=== PATIENT | male | born 1980 | race Hispanic/Latino ===

== ENCOUNTER 2017-05-17 18:57 | Inpatient (IN) | payer SELFPAY ==
[~2017-05-17] VITALS: Ht 167.6 cm; Wt 109.5 kg
[2017-05-17 19:29] LABS: BASOPHILS % (AUTO) 0.7 % (0.0-5.0); EOSINOPHILS % (AUTO) 0.3 % (0.0-8.0); HEMATOCRIT 43.4 % (42-54); LYMPHOCYTES % (AUTO) 15.5 % (21.0-51.0); MEAN CORPUSCULAR HEMOGLOBIN 28.5 pg (27.0-33.0); MEAN CORPUSCULAR HGB CONC 33.9 g/dL (32.0-36.0); MEAN CORPUSCULAR VOLUME 84.2 fL (79-99); MONOCYTES % (AUTO) 5.5 % (3.0-13.0); NUCLEATED RED BLOOD CELLS 0.1 % (0.0-0.19); PLATELET COUNT (AUTO) 284 K/uL (130-400); RED BLOOD CELL COUNT(AUTO) 5.16 MIL/uL (4.50-6.20); RED CELL DISTRIBUTION WIDTH 13.4 % (11.0-15.5); WHITE BLOOD COUNT (AUTO) 19.1 K/uL (4.8-10.8)
[2017-05-17 19:38] LABS: CREATININE 1.1 mg/dL (0.5-1.5); POTASSIUM 3.6 mmol/L (3.5-5.1)
[2017-05-17 19:44] LABS: ALBUMIN 3.5 g/dL (3.5-5.0); BILIRUBIN,TOTAL 1.6 mg/dL (0.2-1.0); TOTAL PROTEIN, SERUM 8.5 g/dL (6.0-8.3)
[2017-05-17] MEDS ORDERED: SODIUM CHLORIDE 0.9% 1000ML 1,000 ML IV ONE ×2 (19:45→21:39)
[2017-05-17] MEDS ORDERED: KETOROLAC TROMETHAMINE 30MG/ML ONE (19:45)
[2017-05-17] MEDS ORDERED: ONDANSETRON HCL MDV 20ML 2 MG/ML VIAL ONE (19:45)
[2017-05-17 20:00] LABS: APPEARANCE,URINE Clear (CLEAR); BILIRUBIN,URINE Negative (NEGATIVE); COLOR,URINE Yellow (YELLOW); GLUCOSE, URINE (UA) Negative (NEGATIVE); KETONES,URINE 15 mg/dL (NEGATIVE); LEUKOCYTE ESTERASE ,URINE Negative (NEGATIVE); NITRATE,URINE Negative (NEGATIVE); OCCULT BLOOD,URINE Trace (NEGATIVE); PH,URINE 6.5 (5.0-8.0); PROTEIN,URINE Negative (NEGATIVE)
[2017-05-17 20:08] LABS: RBC,URINE 0-1 /HPF (0-1)
[2017-05-17 20:09] LABS: BACTERIA,URINE Rare /HPF (None Seen); SQUAMOUS EPITHELIAL CELL,UR 0-2 /HPF (0-2); WBC,URINE 0-1 /HPF (0-1)
[2017-05-17] MEDS ORDERED: IOPAMIDOL-370 75 ML VIAL IV ONE (20:10)
[2017-05-17] MEDS ORDERED: MORPHINE SULFATE 4 MG/1ML SYG ONE (20:48)
[2017-05-17] MEDS ORDERED: MEROPENEM 1 GM VIAL ONE (20:48)
[2017-05-18] VITALS (7 sets, daily range): BP systolic 123–135; BP diastolic 75–78
[2017-05-18] MEDS ORDERED: ACETAMINOPHEN 325 MG TAB PO PRN (00:30)
[2017-05-18] MEDS ORDERED: ONDANSETRON HCL 4 MG/2 ML VIAL IVP PRN (00:30)
[2017-05-18] MEDS ORDERED: MORPHINE SULFATE 4 MG/1ML SYG IV PRN (00:30)
[2017-05-18] MEDS: LEVOFLOXACIN 750 MG/D5W 150 ML 150 ML IV SCH (00:39)
[2017-05-18] MEDS: SODIUM CHLORIDE 0.9% 1000ML 1,000 ML IV SCH ×2 (00:39→09:22)
[2017-05-18 03:55] LABS: HEMATOCRIT 39.3 % (42-54); MEAN CORPUSCULAR HEMOGLOBIN 28.2 pg (27.0-33.0); MEAN CORPUSCULAR HGB CONC 33.2 g/dL (32.0-36.0); MEAN CORPUSCULAR VOLUME 84.7 fL (79-99); PLATELET COUNT (AUTO) 243 K/uL (130-400); RED BLOOD CELL COUNT(AUTO) 4.63 MIL/uL (4.50-6.20); RED CELL DISTRIBUTION WIDTH 13.5 % (11.0-15.5); WHITE BLOOD COUNT (AUTO) 13.4 K/uL (4.8-10.8)
[2017-05-18 04:03] LABS: POTASSIUM 3.7 mmol/L (3.5-5.1)
[2017-05-18 04:15] LABS: HEMOGLOBIN A1C 5.7 % (4.0-6.0)
[2017-05-18] MEDS: METRONIDAZOLE 500MG/100ML BAG 100 ML IV SCH ×3 (05:10→18:05)
[2017-05-18] MEDS ORDERED: METRONIDAZOLE 500MG/100ML BAG 100 ML IV SCH (06:00)
[2017-05-18] MEDS: DEXTROSE 5 % AND 0.9 % NACL 1,000 ML IV SCH ×2 (12:21→22:33)
[2017-05-18] MEDS ORDERED: ONDANSETRON HCL MDV 20ML 2 MG/ML VIAL IVP PRN (12:54)
[2017-05-18] MEDS: KETOROLAC TROMETHAMINE 30MG/ML IV PRN (15:33)
[2017-05-19] MEDS: METRONIDAZOLE 500MG/100ML BAG 100 ML IV SCH ×4 (00:25→17:25)
[2017-05-19] MEDS: LEVOFLOXACIN 750 MG/D5W 150 ML 150 ML IV SCH (02:01)
[2017-05-19 03:25] VITALS: BP 115/71
[2017-05-19 04:38] LABS: MEAN CORPUSCULAR HEMOGLOBIN 28.8 pg (27.0-33.0); MEAN CORPUSCULAR HGB CONC 33.8 g/dL (32.0-36.0); MEAN CORPUSCULAR VOLUME 85.3 fL (79-99); PLATELET COUNT (AUTO) 281 K/uL (130-400); RED BLOOD CELL COUNT(AUTO) 4.34 MIL/uL (4.50-6.20); WHITE BLOOD COUNT (AUTO) 8.9 K/uL (4.8-10.8)
[2017-05-19 04:49] LABS: INR 0.97 (0.85-1.15); PARTIAL THROMBOPLASTIN TIME 42.3 SEC (26.3-35.5)
[2017-05-19 04:54] LABS: ALBUMIN 2.6 g/dL (3.5-5.0); BILIRUBIN,TOTAL 0.8 mg/dL (0.2-1.0); MAGNESIUM 2.2 mg/dL (1.80-2.40); POTASSIUM 3.8 mmol/L (3.5-5.1); TOTAL PROTEIN, SERUM 6.9 g/dL (6.0-8.3)
[2017-05-19] MEDS: DEXTROSE 5 % AND 0.9 % NACL 1,000 ML IV SCH ×2 (05:47→17:25)
[2017-05-19] MEDS: KETOROLAC TROMETHAMINE 30MG/ML IV PRN (05:52)
[2017-05-19 08:00] VITALS: BP 134/83
[2017-05-19 11:40] VITALS: BP 148/84
[2017-05-19 16:00] VITALS: BP 117/71
[2017-05-19 19:20] VITALS: BP 128/82
[2017-05-19 23:10] VITALS: BP 127/79
[2017-05-20] MEDS: METRONIDAZOLE 500MG/100ML BAG 100 ML IV SCH ×2 (00:14→06:06)
[2017-05-20] MEDS: LEVOFLOXACIN 750 MG/D5W 150 ML 150 ML IV SCH (01:06)
[2017-05-20] MEDS: DEXTROSE 5 % AND 0.9 % NACL 1,000 ML IV SCH (03:06)
[2017-05-20 03:10] VITALS: BP 102/52
[2017-05-20 03:47] LABS: HEMATOCRIT 37.5 % (42-54); MEAN CORPUSCULAR HEMOGLOBIN 29.1 pg (27.0-33.0); MEAN CORPUSCULAR HGB CONC 34.3 g/dL (32.0-36.0); MEAN CORPUSCULAR VOLUME 84.8 fL (79-99); PLATELET COUNT (AUTO) 314 K/uL (130-400); RED BLOOD CELL COUNT(AUTO) 4.43 MIL/uL (4.50-6.20); RED CELL DISTRIBUTION WIDTH 13.2 % (11.0-15.5); WHITE BLOOD COUNT (AUTO) 7.8 K/uL (4.8-10.8)
[2017-05-20 03:54] LABS: POTASSIUM 3.8 mmol/L (3.5-5.1)
[2017-05-20 08:00] VITALS: BP 131/78
[2017-05-20] MEDS ORDERED: ACET1TAB12 PO (11:33)
[2017-05-20] MEDS ORDERED: LEVO500T2 PO (11:33)
[2017-05-20] MEDS ORDERED: METR500T PO (11:33)
== END 2017-05-20 12:36 | disposition home or self-care (01) | DRG 872 ==
LOC: EDH 18:57 → 3BH 18:58
PROVIDERS: ADMIT Internal Medicine Nephrology; ATTEND Internal Medicine Nephrology
DX: A41.9 Sepsis, unspecified organism (principal); K76.0 Fatty (change of) liver, not elsewhere classified; K57.20 Diverticulitis of large intestine with perforation and abscess without bleeding; E66.9 Obesity, unspecified; K42.9 Umbilical hernia without obstruction or gangrene; F17.200 Nicotine dependence, unspecified, uncomplicated; Z83.3 Family history of diabetes mellitus; Z68.39 Body mass index [BMI] 39.0-39.9, adult; Z28.21 Immunization not carried out because of patient refusal
CPT/HCPCS: 36415; 71045; 74177; 80048; 80053; 81001; 83036; 83605; 83690; 83735; 85025; 85027; 85610; 85730; 87040; 93005; J1885; J1956; J2185; J2270; J3490; J7030; J7042; Q9967

== ENCOUNTER 2024-08-15 07:47 | Observation (INO) | payer OTHER ==
[2024-08-11 14:33] LABS: IMMATURE GRANULOCYTE ABSOLUTE 0.04 K/uL (0-1); NUCLEATED RED BLOOD CELLS 0.0 % (0.0-0.19); PLATELET COUNT (AUTO) 296 K/uL (130-400); RED BLOOD CELL COUNT(AUTO) 5.37 MIL/uL (4.50-6.20); RED CELL DISTRIBUTION WIDTH 12.6 % (11.0-15.5); WHITE BLOOD COUNT (AUTO) 7.1 K/uL (4.8-10.8)
[2024-08-11 14:36] LABS: APPEARANCE,URINE CLEAR (CLEAR); GLUCOSE, URINE (UA) NEGATIVE (NEGATIVE); LEUKOCYTE ESTERASE ,URINE NEGATIVE Leu/uL (NEGATIVE); NITRATE,URINE NEGATIVE (NEGATIVE); OCCULT BLOOD,URINE NEGATIVE (NEGATIVE)
[2024-08-11 14:38] LABS: ADD UA MICROSCOPIC NO
[2024-08-11 14:44] LABS: INR 0.98 (0.85-1.15)
[2024-08-11 14:45] VITALS: BP 128/87; PULSE 91; RESP 16; TEMP 97.3
[2024-08-11 14:45] LABS: CREATININE 0.6 mg/dL (0.5-1.3); GLOMERULAR FILTR. RATE CALC 123.0 mL/min (>90); GLUCOSE,RANDOM 105.0 mg/dL (70-105); SODIUM SERUM 135.0 mmol/L (136-145); UREA NITROGEN, BLOOD 15.0 mg/dL (7-18)
[~2024-08-15] VITALS: Ht 167.6 cm; Wt 112.0 kg
[2024-08-15] VITALS (29 sets, daily range): BP systolic 96–160; BP diastolic 55–96; PULSE 60–102; RESP 15–20; TEMP 96.7–98.6; O2SAT 94–97
[~2024-08-15 07:47] MED LIST: BACL10TA PO; NAPR-1194 PO; NAPR220T57 PO
[2024-08-15] MEDS: LACTATED RINGERS 1000ML 1,000 ML IV ONE (08:04)
[2024-08-15] MEDS ORDERED: VANCOMYCIN 1G/250ML KIT 250 ML IV ONE (08:55)
[2024-08-15] MEDS ORDERED: BACITRACIN 28.4 GM OINT TP ONE (08:55)
[2024-08-15] MEDS ORDERED: GLYCOPYRROLATE 0.2 MG/ML 5 ML VIAL ONE (09:37)
[2024-08-15] MEDS ORDERED: NEOSTIGMINE METHYLSULFATE 1MG/ML IV ONE (09:37)
[2024-08-15] MEDS ORDERED: MIDAZOLAM HCL 1 MG/ML 2ML VIAL ONE (09:37)
[2024-08-15] MEDS ORDERED: LIDOCAINE PF 100MG/5ML (2%) SYRINGE 5ML ONE (09:37)
[2024-08-15] MEDS: FAMOTIDINE 20MG VIAL IV ONE (09:39)
[2024-08-15] MEDS: THROMBIN-JMI 5000 UNIT/VIAL TP ONE (11:05)
[2024-08-15] MEDS: TRANEXAMIC ACID 1000MG/10ML ONE (11:05)
[2024-08-15] MEDS: VANCOMYCIN 1G VIAL TP ONE ×2 (11:05)
[2024-08-15] MEDS ORDERED: TRANEXAMIC ACID 1000MG/10ML ONE (11:48)
--- NOTE | 2024-08-15 15:50 | NUR ---
ADMITTING ORDERS PLACED; DEMEROL AND TIGAN NOT AVAILABLE. PATIENT REQUESTING PAIN MEDS AND DOES NOT WAN TYLENOL #3; WANTS INJECTION. SPOKE TO DR ANDRE AND ORDER FOR MORPHINE AND ZOFRAN GIVEN. PATIENT AND FAMILY UPSET THAT HE WAS IN PAIN AND STATED HE WANTED PAIN MEDS NOW. MORPHINE OVERIDED AND ADMINISTERED. 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
[2024-08-15] MEDS ORDERED: NAPROXEN 500 MG TABLET PO PRN (16:00)
[2024-08-15] MEDS ORDERED: NAPROXEN SODIUM 440 MG PO PRN (16:00)
[2024-08-15] MEDS: 0.9%NACL 1000ML 1,000 ML IV SCH (16:17)
[2024-08-16] VITALS (7 sets, daily range): BP systolic 124–139; BP diastolic 66–87; PULSE 83–106; RESP 18–19; TEMP 97.4–98.2; O2SAT 94
--- NOTE | 2024-08-16 02:56 | OP ---
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 PROCEDURE: Decompressive laminectomy with medial facetectomy and diskectomy at L3-L4. 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 SURGEON: Bryan Arroyo M.D. ESTIMATED BLOOD LOSS: Less than 100 mL. FINDINGS: There was evidence of a disk herniation into the foramen. ANESTHESIA: General endotracheal. PROCEDURE IN DETAIL: The patient is a 43-year-old male patient with a history of intractable lower back pain, evidence of L4 radiculopathy, for which he was advised, agreed and consented. The patient was brought to the operating room. Adequate general endotracheal anesthesia was achieved. IV antibiotics were given. DVT garments and the needle for the EMG, SSEP were secured. Thereafter, the patient was positioned prone with adequate padding to pressure areas. The back was extensively prepped and draped in the usual sterile fashion. A midline incision was done with blade, bipolar coagulation. I was able to identify the area of interest of L3-L4, which was dissected. The retractor system was secured, and thereafter, I used the drill, different sizes of Kerrison rongeurs, bone wax was used to achieve hemostasis, to do a hemilaminotomy, decompression as well. The ligamentum flavum was dislodged. This was removed. Thereafter, a cottonoid christi was brought into the field, and protecting the thecal sac and the nerve root of L4, the disk was visualized. Thereafter, I used a blade 11 to incise the disk and then all available disk material was removed with different sizes of pituitary rongeur. Thereafter, I used the Olivecrona to assess the decompression without any evidence of fragments of the disk left behind and adequate decompression of the thecal space as well as the nerve root of L3 and L4. Copious irrigation was done with bacteriostatic solution. The wound was copiously irrigated with the bacteriostatic solution, sprinkled with antibiotic powder, Marcaine to the paraspinal muscles, and then the wound was closed by anatomical layers Vicryl 1, Vicryl 2, and odalys. The patient tolerated the procedure well. There were no complications. Family members were addressed. EMG, SSEP remained baseline. Sponge count, needle count, cottonoid count were reported complete at the end of the procedure. TID: [id number] RECEIPT: [id number]
--- NOTE | 2024-08-16 09:33 | NUR ---
DCP: HOME Pt currently lives with his parents. Pt does not have insecurities with food, [facility], and/or utilities. Pt does not have DME, home health, or provider services. Pt is able to complete ADLs independently. Pt states that for primary care services he goes to [facility] and uses [facility] for any RX needs. At [place] pt states that he wants to go home and family can assist with transportation. Addendum: 08/16/24 at 0936 by CULLEN AC SS Amended: Links added.
[2024-08-17 01:31] VITALS: O2SAT 95
[2024-08-17 04:48] VITALS: BP 126/68; PULSE 82; RESP 18; TEMP 98.5
[2024-08-17 08:00] VITALS: BP 123/90; PULSE 73; RESP 18; TEMP 98.9; O2SAT 95
[2024-08-17 12:10] VITALS: BP 130/78; PULSE 81; RESP 18; TEMP 97.8
[2024-08-17] MEDS: BACLOFEN 10 MG TABLET PO PRN (12:16)
--- NOTE | 2024-08-29 15:08 | HMCIMG ---
INTRAOPERATIVE FLUOROSCOPY INDICATION: Lumbar stenosis at L3-L4 FINDINGS: 5 total saved images from intraoperative fluoroscopy are submitted. Patient underwent lumbar decompression at L3-L4. Reported fluoroscopic time was 0.24 minutes. IMPRESSION: Details of the findings and operative notes Please refer to operative note for more information.
== END 2024-08-17 14:05 | disposition home or self-care (01) ==
LOC: DAH 07:47 → DAHIP 07:48 → 3BH 14:00
PROVIDERS: ADMIT Neurological Surgery; ATTEND Neurological Surgery
DX: M51.16 Intervertebral disc disorders with radiculopathy, lumbar region (principal); M48.062 Spinal stenosis, lumbar region with neurogenic claudication; E66.01 Morbid (severe) obesity due to excess calories; Z86.2 Personal history of diseases of the blood and blood-forming organs and certain disorders involving the immune mechanism; Z79.899 Other long term (current) drug therapy; Z68.39 Body mass index [BMI] 39.0-39.9, adult
CPT/HCPCS: 80048; 85025; 85610; 85730; 86850 ×2; 86900 ×2; 86901 ×2; 81003; 36415 ×2; 63030; 96365; 96375; 72020; 96376; 96366; 97161; 97116 ×3; 97530 ×2; G0378 ×46; A4510; A4663; J7120; J3373 ×2; J3490 ×5; J3010 ×3; J0690 ×6; J1100; J0665; J2003; J2250; J2704; J2405; J2270 ×5; J2710; J1010 ×2; J3260 ×2; A4649 ×4; A6010; A4930; A4215; A4223 ×2; A4213; A4222; A4221; A4216; A4600